=== PATIENT | male | born 1980 | race Caucasian/White ===

== ENCOUNTER 2016-05-25 18:51 | Inpatient (IN) | payer MEDICAID ==
[~2016-05-25] VITALS: Ht 177.8 cm; Wt 94.8 kg
[2016-05-25] MEDS ORDERED: BUSP10TA23 PO (19:04)
[2016-05-25] MEDS ORDERED: VENL75 PO (19:04)
[2016-05-25 19:37] LABS: BASOPHILS # (AUTO) 0.03 K/uL (0.00-0.20); BASOPHILS % (AUTO) 0.4 % (0.0-2.0); EOSINOPHILS # (AUTO) 0.11 K/uL (0.00-0.70); EOSINOPHILS % (AUTO) 1.42 % (1.0-6.0); HEMATOCRIT 25.2 % (41-53); HEMOGLOBIN 8.7 g/dL (13.5-17.5); LYMPHOCYTES # (AUTO) 2.4 K/uL (1.0-4.8); LYMPHOCYTES % (AUTO) 32.2 % (22.0-44.0); MEAN CORPUSCULAR HEMOGLOBIN 35.4 pg (26.0-34.0); MEAN CORPUSCULAR HGB CONC 34.4 G/dL (31.0-37.0); MEAN CORPUSCULAR VOLUME 103 fL (80-100); MONOCYTES # (AUTO) 0.7 K/uL (0.1-1.0); MONOCYTES % (AUTO) 8.7 % (2.0-9.0); NEUTROPHILS # (AUTO) 4.3 K/uL (1.8-7.7); NEUTROPHILS % (AUTO) 57.2 % (40.0-70.0); RED BLOOD CELL COUNT(AUTO) 2.45 MIL/uL (4.50-5.90); RED CELL DISTRIBUTION WIDTH 15.3 % (11.5-14.5); WHITE BLOOD COUNT (AUTO) 7.5 K/uL (4.5-11.0)
[2016-05-25 19:44] LABS: ANION GAP 13 mmol/L (8-16); CALCIUM, TOTAL 8.8 mg/dL (8.8-10.5); CARBON DIOXIDE 21 mmol/L (22-29); CHLORIDE 102 mmol/L (98-107); CREATININE 1.23 mg/dL (0.60-1.30); GLOMERULAR FILTR. RATE CALC > 60 mL/min (>60); POTASSIUM 3.7 mmol/L (3.5-5.1); SODIUM SERUM 136 mmol/L (136-145); UREA NITROGEN, BLOOD 17 mg/dL (7-18)
[2016-05-25 19:50] LABS: ALANINE AMINOTRANSFERASE 40 U/L (12-78); ALBUMIN 3.7 g/dL (3.4-5.0); ASPARTATE AMINOTRANSFERASE 59 U/L (15-37); BILIRUBIN,TOTAL 8.3 mg/dL (0.1-1.0); TOTAL PROTEIN, SERUM 7.9 g/dL (6.4-8.2)
[2016-05-25 20:04] LABS: PLATELET COUNT (AUTO) 87 K/uL (150-450); RBC MORPHOLOGY COMMENT ABNORMAL RBC MORPH
[2016-05-25 20:30] LABS: PROTHROMBIN TIME 20.7 SEC (9.4-11.6)
[2016-05-25 20:38] LABS: ACETAMINOPHEN < 2 mcg/mL (10-30)
[2016-05-25 20:59] LABS: ABG A-A DIFF O2 5.9 mmHg (10-20.0); ABG HCO3 21.8 mmol/L (22.0-26.0); ABG PCO2 26 mmHg (35-45); ABG PH 7.491 (7.350-7.450); ALLEN TEST, BLOOD GAS Positive; TEMPERATURE, FAHRENHEIT, BG 98.6 FAHREN (96.0-98.6)
[2016-05-25 21:30] LABS: OSMOLALITY 301 mOS/kg (270-310)
[2016-05-25 21:41] LABS: SALICYLATE < 2.8 mg/dL (2.8-20.0)
[2016-05-25] MEDS ORDERED: DiphenhydrAMINE HCL 50 MG/ML VIAL IM ONE (23:00)
[2016-05-25] MEDS ORDERED: LORazepam 2 MG/ML VIAL IM ONE (23:00)
[2016-05-25] MEDS ORDERED: HALOPERIDOL LACTATE 5 MG/ML VIAL IM ONE (23:00)
[2016-05-26 03:23] VITALS: BP 105/58
[2016-05-26] MEDS ORDERED: INFLUENZA VIRUS VACCINE QVS 2016-17 (3YR+)/PF 60 MCG/0.5 ML SYRINGE IM ONE (04:00)
[2016-05-26] MEDS ORDERED: PNEUMOCOCCAL VACCINE POLYVALENT 0.5 ML VIAL [PPSV23] IM ONE (04:00)
[2016-05-26 08:00] VITALS: BP 112/73
[2016-05-26] MEDS: LORazepam 2 MG TABLET PO PRN ×3 (12:58→22:18)
[2016-05-26 20:53] VITALS: BP 110/85
[2016-05-26] MEDS ORDERED: PALIPERIDONE 3 MG ER TABLET PO SCH (22:45)
[2016-05-26] MEDS: VENLAFAXINE HCL 150 MG ER CAPSULE PO SCH (22:48)
[2016-05-27 08:10] VITALS: BP 119/60
[2016-05-27] MEDS: LORazepam 2 MG TABLET PO PRN ×3 (12:28→22:15)
[2016-05-27] MEDS ORDERED: CYANOCOBALAMIN 1,000 MCG/ML VIAL IM ONE (15:00)
[2016-05-27] MEDS: EPOETIN ALFA 10,000 UNITS/ML VIAL SQ SCH (15:59)
[2016-05-27] MEDS ORDERED: PALIPERIDONE 3 MG ER TABLET PO SCH (21:00)
[2016-05-27] MEDS ORDERED: VENLAFAXINE HCL 150 MG ER CAPSULE PO SCH (21:00)
[2016-05-27 21:04] VITALS: BP 118/75
[2016-05-27] MEDS: VENLAFAXINE HCL 150 MG ER CAPSULE PO SCH (21:12)
[2016-05-27] MEDS: PALIPERIDONE 6 MG ER TABLET PO SCH (21:12)
[2016-05-27] MEDS: ZOLPIDEM TARTRATE 10 MG TABLET PO PRN (21:21)
[2016-05-28 08:00] VITALS: BP 101/57
[2016-05-28] MEDS ORDERED: LOPERAMIDE HCL 2 MG CAPSULE PO PRN (12:15)
[2016-05-28] MEDS: VENLAFAXINE HCL 150 MG ER CAPSULE PO SCH (12:16)
[2016-05-28] MEDS: FOLIC ACID 1 MG TABLET PO SCH (12:16)
[2016-05-28 16:30] VITALS: BP 106/61
[2016-05-28] MEDS: PALIPERIDONE 6 MG ER TABLET PO SCH (20:09)
[2016-05-28] MEDS: ZOLPIDEM TARTRATE 10 MG TABLET PO PRN (20:52)
[2016-05-29 00:05] VITALS: BP 137/83
[2016-05-29 07:16] LABS: CHOL/HDL RATIO 1.5 (4.2-7.3); THYROID STIMULATING HORMONE 0.82 uIU/mL (0.36-3.74)
[2016-05-29] MEDS: FOLIC ACID 1 MG TABLET PO SCH (08:11)
[2016-05-29] MEDS: PALIPERIDONE 6 MG ER TABLET PO SCH (08:12)
[2016-05-29] MEDS: VENLAFAXINE HCL 150 MG ER CAPSULE PO SCH (08:12)
[2016-05-29] MEDS: LORazepam 2 MG TABLET PO PRN (08:13)
[2016-05-29] MEDS: HALOPERIDOL 5 MG TABLET PO PRN (08:13)
[2016-05-29 08:30] VITALS: BP 140/96
[2016-05-29] MEDS: EPOETIN ALFA 10,000 UNITS/ML VIAL SQ SCH (12:19)
[2016-05-29 16:30] VITALS: BP 138/89
[2016-05-30 08:30] VITALS: BP 116/78
[2016-05-30] MEDS: FOLIC ACID 1 MG TABLET PO SCH (10:02)
[2016-05-30] MEDS: VENLAFAXINE HCL 150 MG ER CAPSULE PO SCH (10:02)
[2016-05-30 15:03] LABS: BASOPHILS # (AUTO) 0.02 K/uL (0.00-0.20); BASOPHILS % (AUTO) 0.3 % (0.0-2.0); EOSINOPHILS # (AUTO) 0.13 K/uL (0.00-0.70); EOSINOPHILS % (AUTO) 2.86 % (1.0-6.0); HEMATOCRIT 23.1 % (41-53); HEMOGLOBIN 7.7 g/dL (13.5-17.5); LYMPHOCYTES # (AUTO) 1.3 K/uL (1.0-4.8); LYMPHOCYTES % (AUTO) 27.5 % (22.0-44.0); MEAN CORPUSCULAR HEMOGLOBIN 35.6 pg (26.0-34.0); MEAN CORPUSCULAR HGB CONC 33.5 G/dL (31.0-37.0); MEAN CORPUSCULAR VOLUME 106 fL (80-100); MONOCYTES # (AUTO) 0.6 K/uL (0.1-1.0); MONOCYTES % (AUTO) 13.7 % (2.0-9.0); NEUTROPHILS # (AUTO) 2.6 K/uL (1.8-7.7); NEUTROPHILS % (AUTO) 55.6 % (40.0-70.0); RED BLOOD CELL COUNT(AUTO) 2.17 MIL/uL (4.50-5.90); WHITE BLOOD COUNT (AUTO) 4.7 K/uL (4.5-11.0)
[2016-05-30 15:13] LABS: ALANINE AMINOTRANSFERASE 26 U/L (12-78); ALBUMIN 2.5 g/dL (3.4-5.0); ANION GAP 7 mmol/L (8-16); ASPARTATE AMINOTRANSFERASE 36 U/L (15-37); BILIRUBIN,TOTAL 2.1 mg/dL (0.1-1.0); CALCIUM, TOTAL 7.5 mg/dL (8.8-10.5); CARBON DIOXIDE 23 mmol/L (22-29); CHLORIDE 112 mmol/L (98-107); CREATININE 0.78 mg/dL (0.60-1.30); GLOMERULAR FILTR. RATE CALC > 60 mL/min (>60); POTASSIUM 3.9 mmol/L (3.5-5.1); SODIUM SERUM 142 mmol/L (136-145); UREA NITROGEN, BLOOD 12 mg/dL (7-18)
[2016-05-30 15:54] LABS: PLATELET COUNT (AUTO) 67 K/uL (150-450); RBC MORPHOLOGY COMMENT ABNORMAL RBC MORPH
[2016-05-30 16:04] LABS: HEPATITIS Bs ANTIGEN SCREEN P Negative (Negative); HEPATITIS C AB SCREEN <0.1 s/co ratio (0.0-0.9)
[2016-05-30 16:30] VITALS: BP 107/76
[2016-05-30 18:00] VITALS: BP 139/92
[2016-05-30] MEDS ORDERED: PALIPERIDONE 3 MG ER TABLET PO SCH (21:00)
[2016-05-31] MEDS: ZOLPIDEM TARTRATE 10 MG TABLET PO PRN (00:19)
[2016-05-31 07:01] VITALS: BP 128/85
[2016-05-31 08:10] VITALS: BP 102/78
[2016-05-31] MEDS: EPOETIN ALFA 10,000 UNITS/ML VIAL SQ SCH (08:59)
[2016-05-31] MEDS: VENLAFAXINE HCL 150 MG ER CAPSULE PO SCH (09:00)
[2016-05-31] MEDS: FOLIC ACID 1 MG TABLET PO SCH (09:00)
[2016-05-31] MEDS: LACTULOSE 20 GM/30 ML SOLUTION UDCUP PO SCH ×2 (09:12→16:54)
[2016-05-31] MEDS: HALOPERIDOL 5 MG TABLET PO PRN ×2 (11:32→16:57)
[2016-05-31 16:27] VITALS: BP 118/87
[2016-05-31] MEDS ORDERED: LACTULOSE 20 GM/30 ML SOLUTION UDCUP PO SCH (17:00)
[2016-06-01] MEDS ORDERED: THIAMINE HCL 100 MG TABLET PO SCH (09:00)
== END 2016-05-31 21:00 | disposition short-term general hospital (02) | DRG 750 ==
LOC: EMS 18:54 → 3EI 22:45
PROVIDERS: ADMIT Psychiatry & Neurology Psychiatry; ATTEND Psychiatry & Neurology Psychiatry
PROC: 3E0234Z Introduction of Serum, Toxoid and Vaccine into Muscle, Percutaneous Approach (ICD-10-PCS; principal; 2016-05-25)
DX: F25.0 Schizoaffective disorder, bipolar type (principal); K74.60 Unspecified cirrhosis of liver; R45.851 Suicidal ideations; F15.20 Other stimulant dependence, uncomplicated; Z62.819 Personal history of unspecified abuse in childhood; R44.0 Auditory hallucinations; B19.20 Unspecified viral hepatitis C without hepatic coma; D53.9 Nutritional anemia, unspecified; F10.10 Alcohol abuse, uncomplicated; F15.10 Other stimulant abuse, uncomplicated; I10 Essential (primary) hypertension; K72.90 Hepatic failure, unspecified without coma; F17.210 Nicotine dependence, cigarettes, uncomplicated; Z88.1 Allergy status to other antibiotic agents; Z23 Encounter for immunization; Z91.5 Personal history of self-harm
CPT/HCPCS: 70450; 80074; 80320; 82105; 82693; 82805; 83036; 83605; 83735; 83930; 84439; 84443; 86592; 90471; 93005; 96372; 99285; G0480; G0481; J0885; J1200; J1630; J2060; J3420

== ENCOUNTER 2016-05-31 21:05 | Inpatient (IN) | payer MEDICAID ==
[2016-05-31 20:30] VITALS: BP 121/78
[~2016-05-31 21:05] MED LIST: BUSP10TA23 PO; VENL75 PO
[2016-05-31] MEDS ORDERED: ONDANSETRON HCL 4 MG/2 ML VIAL IVP PRN (23:30)
[2016-05-31] MEDS ORDERED: ALBUTEROL SULFATE 2.5 MG/0.5 ML NEB SOLUTION NEB PRN (23:30)
[2016-05-31] MEDS ORDERED: IPRATROPIUM BROMIDE 0.5 MG/2.5 ML NEB SOLUTION NEB PRN (23:30)
[2016-05-31] MEDS ORDERED: BISACODYL 10 MG RECTAL RECTAL SUPPOSITORY PR PRN (23:30)
[2016-05-31] MEDS ORDERED: MAGNESIUM HYDROXIDE SUSPENSION 30 ML UDCUP PO PRN (23:30)
[2016-05-31] MEDS ORDERED: DEXTROSE 5%-0.45% SODIUM CHL 1,000 ML IV ONE (23:45)
[2016-06-01] MEDS ORDERED: 0.9% SODIUM CHLORIDE 10 ML SYRINGE IVP PRN (03:00)
[2016-06-01 04:53] VITALS: BP 123/69
[2016-06-01 06:22] LABS: INR 1.8 (0.9-1.1); PROTHROMBIN TIME 18.8 SEC (9.4-11.6)
[2016-06-01 06:25] LABS: LACTIC ACID 0.8 mmol/L (0.4-2.0)
[2016-06-01 06:32] LABS: ANION GAP 9 mmol/L (8-16); CALCIUM, TOTAL 6.9 mg/dL (8.8-10.5); CARBON DIOXIDE 23 mmol/L (22-29); CHLORIDE 111 mmol/L (98-107); CHOL/HDL RATIO 1.6 (4.2-7.3); CREATINE KINASE, TOTAL 67 U/L (39-308); CREATININE 0.67 mg/dL (0.60-1.30); GLOMERULAR FILTR. RATE CALC > 60 mL/min (>60); POTASSIUM 3.9 mmol/L (3.5-5.1); SODIUM SERUM 143 mmol/L (136-145); THYROID STIMULATING HORMONE 1.84 uIU/mL (0.36-3.74); UREA NITROGEN, BLOOD 12 mg/dL (7-18)
[2016-06-01 06:41] LABS: BASOPHILS # (AUTO) 0.01 K/uL (0.00-0.20); BASOPHILS % (AUTO) 0.3 % (0.0-2.0); EOSINOPHILS # (AUTO) 0.16 K/uL (0.00-0.70); EOSINOPHILS % (AUTO) 3.49 % (1.0-6.0); HEMATOCRIT 22.4 % (41-53); HEMOGLOBIN 7.6 g/dL (13.5-17.5); LYMPHOCYTES # (AUTO) 1.4 K/uL (1.0-4.8); LYMPHOCYTES % (AUTO) 31.1 % (22.0-44.0); MEAN CORPUSCULAR HEMOGLOBIN 35.5 pg (26.0-34.0); MEAN CORPUSCULAR HGB CONC 33.9 G/dL (31.0-37.0); MEAN CORPUSCULAR VOLUME 105 fL (80-100); MONOCYTES # (AUTO) 0.7 K/uL (0.1-1.0); MONOCYTES % (AUTO) 16.2 % (2.0-9.0); NEUTROPHILS # (AUTO) 2.2 K/uL (1.8-7.7); NEUTROPHILS % (AUTO) 48.9 % (40.0-70.0); RED BLOOD CELL COUNT(AUTO) 2.13 MIL/uL (4.50-5.90); RED CELL DISTRIBUTION WIDTH 15.9 % (11.5-14.5); WHITE BLOOD COUNT (AUTO) 4.6 K/uL (4.5-11.0)
[2016-06-01 07:25] LABS: HEMOGLOBIN A1C 4.6 % (4.5-6.2)
[2016-06-01 08:10] LABS: IRON, SERUM 28 mcg/dL (50-175); TOTAL IRON BINDING CAPACITY 194 mcg/dL (250-450)
[2016-06-01 08:33] VITALS: BP 133/78
[2016-06-01 08:56] LABS: PLATELET COUNT (AUTO) 76 K/uL (150-450)
[2016-06-01] MEDS ORDERED: THIAMINE HCL 100 MG TABLET PO SCH (09:00)
[2016-06-01] MEDS ORDERED: HEPARIN SODIUM,PORCINE 5,000 UNITS/ML VIAL SQ SCH (09:00)
[2016-06-01] MEDS ORDERED: PANTOPRAZOLE SODIUM 40 MG/VIAL IVP SCH (09:00)
[2016-06-01] MEDS ORDERED: LACTULOSE 20 GM/30 ML SOLUTION UDCUP PO SCH (09:00)
[2016-06-01] MEDS ORDERED: FOLIC ACID 1 MG TABLET PO SCH (09:00)
[2016-06-01] MEDS ORDERED: CYANOCOBALAMIN 500 MCG TABLET PO SCH (09:00)
[2016-06-01 09:45] LABS: APPEARANCE,URINE CLEAR (CLEAR); GLUCOSE, URINE (UA) NEGATIVE (NEGATIVE); KETONES,URINE NEGATIVE (NEGATIVE); LEUKOCYTE ESTERASE ,URINE NEGATIVE (NEGATIVE); OCCULT BLOOD,URINE NEGATIVE (NEGATIVE); PROTEIN,URINE NEGATIVE (NEGATIVE)
[2016-06-01 09:46] LABS: ADD UA MICROSCOPIC YES
[2016-06-01 09:49] LABS: RBC,URINE None Seen /HPF (0-2); WBC,URINE 0-2 /HPF (0-5)
[2016-06-01 09:51] LABS: SQUAMOUS EPITHELIAL CELL,UR Rare /LPF (None Seen)
[2016-06-01 11:08] VITALS: BP 118/67
[2016-06-01 16:44] VITALS: BP 125/65
[2016-06-01 17:04] LABS: HEMOGLOBIN 8.4 g/dL (13.5-17.5)
== END 2016-06-01 18:00 | disposition left against medical advice (07) | DRG 279 ==
LOC: 6N 21:05
PROVIDERS: ADMIT Internal Medicine Geriatric Medicine; ATTEND Internal Medicine Geriatric Medicine
DX: K72.00 Acute and subacute hepatic failure without coma (principal); R45.851 Suicidal ideations; E87.8 Other disorders of electrolyte and fluid balance, not elsewhere classified; E46 Unspecified protein-calorie malnutrition; D69.6 Thrombocytopenia, unspecified; E55.9 Vitamin D deficiency, unspecified; J44.9 Chronic obstructive pulmonary disease, unspecified; D75.89 Other specified diseases of blood and blood-forming organs; F10.20 Alcohol dependence, uncomplicated; F09 Unspecified mental disorder due to known physiological condition; F17.210 Nicotine dependence, cigarettes, uncomplicated; D64.9 Anemia, unspecified; B19.20 Unspecified viral hepatitis C without hepatic coma; F19.10 Other psychoactive substance abuse, uncomplicated; Z88.1 Allergy status to other antibiotic agents; Z79.899 Other long term (current) drug therapy; Z98.890 Other specified postprocedural states; Z91.19 Patient's noncompliance with other medical treatment and regimen
CPT/HCPCS: 82270; 82271; 82306; 82607; 82746; 83036; 83540; 83550; 83605; 83735; 84439; 84443; 85014; 85018; 86592; 87081; C9113; J1644

== ENCOUNTER 2016-06-27 16:36 | Inpatient (IN) | payer MEDICAID ==
[~2016-06-27] VITALS: Ht 177.8 cm; Wt 102.8 kg
[~2016-06-27 16:36] MED LIST changes: -BUSP10TA23 PO
[2016-06-27 17:15] LABS: BASOPHILS % (AUTO) 0.9 % (0.0-2.0); EOSINOPHILS % (AUTO) 2.7 % (1.0-6.0); HEMATOCRIT 29.4 % (41-53); HEMOGLOBIN 9.5 g/dL (13.5-17.5); LYMPHOCYTES # (AUTO) 3.5 K/uL (1.0-4.8); LYMPHOCYTES % (AUTO) 31.1 % (22.0-44.0); MEAN CORPUSCULAR HEMOGLOBIN 32.6 pg (26.0-34.0); MEAN CORPUSCULAR HGB CONC 32.3 G/dL (31.0-37.0); MEAN CORPUSCULAR VOLUME 101 fL (80-100); MONOCYTES # (AUTO) 1.1 K/uL (0.1-1.0); MONOCYTES % (AUTO) 9.7 % (2.0-9.0); NEUTROPHILS # (AUTO) 6.2 K/uL (1.8-7.7); NEUTROPHILS % (AUTO) 55.6 % (40.0-70.0); PLATELET COUNT (AUTO) 128 K/uL (150-450); RED BLOOD CELL COUNT(AUTO) 2.91 MIL/uL (4.50-5.90); WHITE BLOOD COUNT (AUTO) 11.2 K/uL (4.5-11.0)
[2016-06-27 17:16] LABS: RBC MORPHOLOGY COMMENT ABNORMAL RBC MORPH
[2016-06-27 17:41] LABS: ALANINE AMINOTRANSFERASE 32 U/L (12-78); ALBUMIN 2.5 g/dL (3.4-5.0); ANION GAP 10 mmol/L (8-16); ASPARTATE AMINOTRANSFERASE 55 U/L (15-37); BILIRUBIN,TOTAL 2.7 mg/dL (0.1-1.0); CALCIUM, TOTAL 7.2 mg/dL (8.8-10.5); CARBON DIOXIDE 21 mmol/L (22-29); CHLORIDE 105 mmol/L (98-107); CREATININE 0.67 mg/dL (0.60-1.30); GLOMERULAR FILTR. RATE CALC > 60 mL/min (>60); SODIUM SERUM 136 mmol/L (136-145); TOTAL PROTEIN, SERUM 6.9 g/dL (6.4-8.2); UREA NITROGEN, BLOOD 5 mg/dL (7-18)
[2016-06-27 17:47] LABS: POTASSIUM 2.8 mmol/L (3.5-5.1)
[2016-06-27] MEDS ORDERED: POTASSIUM CHLORIDE 20 MEQ ER TABLET PO ONE (18:30)
[2016-06-27 21:25] VITALS: BP 123/72
[2016-06-28 05:17] VITALS: BP 125/81
[2016-06-28 08:16] VITALS: BP 128/88
[2016-06-28] MEDS: NICOTINE 14 MG/24 HOUR PATCH TD SCH (08:44)
[2016-06-28] MEDS: LORazepam 1 MG TABLET PO PRN ×2 (10:41→17:07)
[2016-06-28] MEDS ORDERED: VENL-68 PO (15:37)
[2016-06-28 17:03] VITALS: BP 120/79
[2016-06-28] MEDS: ACETAMINOPHEN 325 MG TABLET PO PRN (17:07)
[2016-06-28] MEDS: ZOLPIDEM TARTRATE 10 MG TABLET PO PRN (22:06)
[2016-06-29] MEDS ORDERED: IBUPROFEN 400 MG TABLET PO PRN (00:15)
[2016-06-29] MEDS: FERROUS SULFATE 325 MG EC TABLET PO SCH ×3 (07:03→16:44)
[2016-06-29 08:07] VITALS: BP 121/91
[2016-06-29] MEDS: ARIPiprazole 5 MG TABLET PO SCH (08:48)
[2016-06-29] MEDS: VENLAFAXINE HCL 75 MG ER CAPSULE PO SCH (08:48)
[2016-06-29] MEDS: NICOTINE 14 MG/24 HOUR PATCH TD SCH (08:48)
[2016-06-29 17:32] VITALS: BP 120/84
[2016-06-29] MEDS: ZOLPIDEM TARTRATE 10 MG TABLET PO PRN (21:01)
[2016-06-30 00:43] VITALS: BP 128/76
[2016-06-30] MEDS: ACETAMINOPHEN 325 MG TABLET PO PRN (00:50)
[2016-06-30] MEDS: FERROUS SULFATE 325 MG EC TABLET PO SCH ×3 (07:02→16:56)
[2016-06-30 07:58] LABS: CHOL/HDL RATIO 1.7 (4.2-7.3)
[2016-06-30 08:00] VITALS: BP 120/75
[2016-06-30] MEDS ORDERED: DOCUSATE SODIUM 100 MG CAPSULE PO PRN (08:30)
[2016-06-30] MEDS: ARIPiprazole 5 MG TABLET PO SCH (10:00)
[2016-06-30] MEDS: VENLAFAXINE HCL 75 MG ER CAPSULE PO SCH (10:00)
[2016-06-30] MEDS: NICOTINE 14 MG/24 HOUR PATCH TD SCH (10:05)
[2016-06-30 18:43] VITALS: BP 111/63
[2016-06-30] MEDS: ZOLPIDEM TARTRATE 10 MG TABLET PO PRN (20:15)
[2016-07-01] MEDS: FERROUS SULFATE 325 MG EC TABLET PO SCH ×3 (06:38→17:30)
[2016-07-01 09:00] VITALS: BP 130/80
[2016-07-01] MEDS: ARIPiprazole 5 MG TABLET PO SCH (09:39)
[2016-07-01] MEDS: VENLAFAXINE HCL 75 MG ER CAPSULE PO SCH (09:39)
[2016-07-01] MEDS: NICOTINE 14 MG/24 HOUR PATCH TD SCH (09:40)
[2016-07-01 16:34] VITALS: BP 143/75
[2016-07-01] MEDS ORDERED: ARIP5TAB9 PO (19:34)
[2016-07-01] MEDS ORDERED: FERS325 PO (19:35)
[2016-07-01] MEDS: ZOLPIDEM TARTRATE 10 MG TABLET PO PRN (20:11)
[2016-07-02] MEDS: FERROUS SULFATE 325 MG EC TABLET PO SCH ×3 (06:35→16:30)
[2016-07-02 06:38] VITALS: BP 129/69
[2016-07-02 08:04] VITALS: BP 116/72
[2016-07-02] MEDS: VENLAFAXINE HCL 75 MG ER CAPSULE PO SCH (10:04)
[2016-07-02] MEDS: ARIPiprazole 5 MG TABLET PO SCH (10:04)
[2016-07-02] MEDS: NICOTINE 14 MG/24 HOUR PATCH TD SCH (10:05)
== END 2016-07-02 21:15 | disposition home or self-care (01) | DRG 750 ==
LOC: EMS 16:37 → 3EI 21:22
PROVIDERS: ADMIT Psychiatry & Neurology Psychiatry; ATTEND Psychiatry & Neurology Psychiatry
DX: F25.0 Schizoaffective disorder, bipolar type (principal); R45.851 Suicidal ideations; K74.60 Unspecified cirrhosis of liver; F15.20 Other stimulant dependence, uncomplicated; F41.9 Anxiety disorder, unspecified; E87.6 Hypokalemia; I10 Essential (primary) hypertension; B19.20 Unspecified viral hepatitis C without hepatic coma; D64.9 Anemia, unspecified; F17.210 Nicotine dependence, cigarettes, uncomplicated; F10.129 Alcohol abuse with intoxication, unspecified; Z71.41 Alcohol abuse counseling and surveillance of alcoholic; Z90.79 Acquired absence of other genital organ(s); Z88.1 Allergy status to other antibiotic agents; Z71.51 Drug abuse counseling and surveillance of drug abuser; Z91.5 Personal history of self-harm; Z62.819 Personal history of unspecified abuse in childhood; Y90.7 Blood alcohol level of 200-239 mg/100 ml
CPT/HCPCS: 83036; 84132; 87081; 99285; G0480

== ENCOUNTER 2016-07-13 19:44 | Emergency (ER) | payer MEDICAID ==
[~2016-07-13] VITALS: Ht 177.8 cm; Wt 90.9 kg
[~2016-07-13 19:44] MED LIST changes: +ARIP5TAB9 PO; +FERS325 PO; +VENL-68 PO; -VENL75 PO
[2016-07-14 01:03] LABS: BASOPHILS # (AUTO) 0.04 K/uL (0.00-0.20); BASOPHILS % (AUTO) 0.5 % (0.0-2.0); EOSINOPHILS # (AUTO) 0.04 K/uL (0.00-0.70); EOSINOPHILS % (AUTO) 0.51 % (1.0-6.0); HEMATOCRIT 29.1 % (41-53); HEMOGLOBIN 9.6 g/dL (13.5-17.5); LYMPHOCYTES # (AUTO) 1.6 K/uL (1.0-4.8); LYMPHOCYTES % (AUTO) 19.5 % (22.0-44.0); MEAN CORPUSCULAR HEMOGLOBIN 33.6 pg (26.0-34.0); MEAN CORPUSCULAR HGB CONC 33.1 G/dL (31.0-37.0); MEAN CORPUSCULAR VOLUME 102 fL (80-100); MONOCYTES # (AUTO) 0.5 K/uL (0.1-1.0); MONOCYTES % (AUTO) 6.3 % (2.0-9.0); NEUTROPHILS # (AUTO) 5.8 K/uL (1.8-7.7); NEUTROPHILS % (AUTO) 73.2 % (40.0-70.0); PLATELET COUNT (AUTO) 109 K/uL (150-450); RED BLOOD CELL COUNT(AUTO) 2.86 MIL/uL (4.50-5.90); RED CELL DISTRIBUTION WIDTH 18.3 % (11.5-14.5)
[2016-07-14 01:15] LABS: ANION GAP 11 mmol/L (8-16); CALCIUM, TOTAL 7.5 mg/dL (8.8-10.5); CARBON DIOXIDE 25 mmol/L (22-29); CHLORIDE 103 mmol/L (98-107); CREATININE 0.89 mg/dL (0.60-1.30); GLOMERULAR FILTR. RATE CALC > 60 mL/min (>60); POTASSIUM 3.6 mmol/L (3.5-5.1); SODIUM SERUM 139 mmol/L (136-145); UREA NITROGEN, BLOOD 5 mg/dL (7-18)
[2016-07-14 01:20] LABS: ALANINE AMINOTRANSFERASE 26 U/L (12-78); ALBUMIN 2.4 g/dL (3.4-5.0); ASPARTATE AMINOTRANSFERASE 48 U/L (15-37); BILIRUBIN,TOTAL 4.8 mg/dL (0.1-1.0); TOTAL PROTEIN, SERUM 6.9 g/dL (6.4-8.2)
[2016-07-14] MEDS ORDERED: ONDANSETRON HCL 4 MG TABLET PO ONE (02:00)
[2016-07-14] MEDS ORDERED: CLINDAMYCIN HCL 150 MG CAPSULE PO ONE (02:00)
[2016-07-14 02:21] VITALS: BP 128/74
[2016-07-14 06:18] LABS: RBC MORPHOLOGY COMMENT ABNORMAL RBC MORPH
== END 2016-07-14 02:30 | disposition home or self-care (01) ==
LOC: EMS 19:45
DX: F32.9 Major depressive disorder, single episode, unspecified (principal); L03.116 Cellulitis of left lower limb
CPT/HCPCS: 36415; 80053; 80307; 85025; 99284; G0480; Q0162; 99283